=== PATIENT | male | born 1995 | race African-American/Black ===

== ENCOUNTER 2017-11-02 17:07 | Emergency (ER) | payer MEDICAID, SELFPAY ==
[2017-11-02 17:07] VITALS: BP 118/65; PULSE 76; RESP 16; TEMP 36.8; O2SAT 99; BMI 21.7
--- NOTE | 2017-11-02 17:09 | RAD_ITS ---
STUDY: X-RAY - RIGHT KNEE REASON FOR EXAM: Male, 21 years old. Pain after lifting injury. TECHNIQUE: 3 view(s) of the knee. COMPARISON: None. FINDINGS: Normal visualized distal femur. Normal visualized proximal tibia and fibula. Normal proximal tibiofibular articulation. There is no demonstrated fracture. Normal medial femorotibial compartment. Normal lateral femorotibial compartment. Normal patellofemoral articulation. The soft tissue structures are unremarkable. RAD/Knee 3 Views IMPRESSION: Normal x-ray examination of the knee. Electronically Signed: Trini Isaacs MD at 17:25 EDT , Service support ,
--- NOTE | 2017-11-02 17:48 | ED.VISSUMM ---
- ER Visit Summary Date of Service: 11/02/17 Chief Complaint: Right knee pain History of Present Illness: The patient is a 21 M is complaining of right knee pain for the past 1 week. It is intermittent. Patient denies any known specific injury. He denies paresthesias or weakness of his leg. He points to the area just beneath the patella describing the area of pain. He has not noticed significant swelling. Physical Examination: Vital signs are unremarkable. Patient sitting in the santizo chair no acute distress. Heart is regular rate and rhythm. Lung sounds are clear. Lower extremity examination significant for right lower extremity examination with reproducible tenderness along the insertion of the infrapatellar tendon to the patella. There is no joint line tenderness. He has normal range of motion. No effusion is noted. Strong distal pulses are appreciated. Test Results: Right knee x-rays were obtained per nursing protocol. They are unremarkable per radiology read. Emergency Department Course and Treatment: The patient has tendinitis. He will be given an Reggie wrap and started on anti-inflammatories. He is referred to orthopedics if not improving. Treatment Plan: [] Disposition: Discharge Impression: Tendinitis right knee This note was generated with [employer] dictation software. It may contain incorrect words, spelling, and punctuation that were not noted in review of the chart prior to signing ED Disposition - Plan for ED Patient: Disposition: Home or Assisted Living Chief Complaint: Lower Extremity Injury Instructions: ED Sprain Knee Prescriptions: Naproxen [Naprosyn] 500 mg PO BID PRN #20 tablet Referrals: Dayron Benítez MD [Primary Care Provider] - Willis Mcmillan MD [STAFF PHYSICIAN] - As Needed
[2017-11-02 18:27] VITALS: PULSE 56; RESP 14
== END 2017-11-02 18:34 | disposition home or self-care (01) ==
LOC: ED 18:08
PROVIDERS: Emergency Provider Emergency Medicine; Family Provider Pediatrics; PCP Pediatrics
DX: M76.51 Patellar tendinitis, right knee (principal)
CPT/HCPCS: 73562; 99284

== ENCOUNTER 2018-06-18 18:04 | Emergency (ER) | payer MEDICAID, SELFPAY ==
[2018-06-18 18:05] VITALS: BP 117/76; PULSE 83; RESP 16; TEMP 36.4; O2SAT 97; BMI 19.8
[2018-06-18] MEDS: 0.9% Normal Saline 1,000 ML 1000 ML IV (18:24)
[2018-06-18 18:25] VITALS: BP 116/74; BP 117/68; BP 98/69; PULSE 69; PULSE 78; PULSE 97
[2018-06-18 18:37] LABS: Absolute Lymphocyte Count 1.93 X10^3/ul (0.83-4.51); Absolute Neutrophil Count 3.6 X10^3/uL (2.0-7.7); Basophil# 0.01 X10^3/uL; Basophil% 0.2 % (0-1); Eosinophil# 0.09 X10^3/uL; Eosinophils% 1.5 % (0-5); Hematocrit 40.8 % (40-54); Hemoglobin 14.4 g/dl (13.0-16.5); Lymphocyte # 1.93 X10^3/ul (4.0); Lymphocyte % 31.4 % (19-41); Mean Corp Hgb Conc 35.3 g/gl (32-36); Mean Corpuscular Hgb 30.7 pg (27.0-32.0); Mean Platelet Vol. 9.3 fl (6.2-12.0); Monocyte% 8.1 % (0-10); Neutrophil % 58.6 % (47-70); Platelet Count 177 K/mm3 (150-450); RBC Distribution Width CV 12.1 % (11.6-14.6); RBC Distribution Width SD 38.9 fl (35.1-43.9); Red Blood Count 4.69 M/mm3 (4.6-6.2); White Blood Count 6.1 K/mm3 (4.4-11.0)
[2018-06-18 18:38] LABS: POSITIVE COUNT NO; POSITIVE DIFFERENTIAL NO; POSITIVE MORPHOLOGY NO
[2018-06-18 18:56] LABS: Anion Gap 6 (5-15); BUN 11 mg/dL (7-18); BUN/Creat Ratio 12.8 RATIO (10-20); Calcium,Total 8.4 mg/dL (8.5-10.1); Chloride 103 mmol/L (98-107); Creatinine, Serum 0.86 mg/dL (0.70-1.30); EST Glomerular Filtration Rate 120 mL/min (>60); Est Glom Filt Rate - Afr Amer 145 mL/min (>60); Estimated Creatinine Clearance 131.86 ml/min; Glucose 92 mg/dL (74-106); Potassium 3.7 mmol/L (3.5-5.1); Sodium Level 139 mmol/L (136-145)
--- NOTE | 2018-06-18 19:24 | ED.VISSUMM ---
- ER Visit Summary Date of Service: 06/18/18 Chief Complaint: Syncope History of Present Illness: The patient is a 22 M who stood from bed and felt lightheaded. He had a brief syncopal episode as he arrived in the hallway. He denies palpitations. He had similar episodes of the past couple of months. All of occurred shortly after standing. He denies syncope while playing basketball or with any other exertion. He does not have chest pain. He does admit that he has not been eating and drinking well recently. He denies that his urine is concentrated. Physical Examination: Vital signs unremarkable. Patient has lying in bed no acute distress. Head and neck examination is normal. Heart is regular rate and rhythm. Lungs sounds clear. Abdomen is soft nontender. Neuro exam is well. Test Results: Patient is observed on chronic care nurse with no sign of arrhythmia. CBC and chemistry studies normal. Emergency Department Course and Treatment: Patient is given a liter IV fluids. Orthostatic vital signs are borderline positive prior to initiation of any treatment. Test results are discussed with patient and family at bedside. He is instructed to increase fluids over the next several days. Treatment Plan: [] Disposition: Discharge Impression: Orthostatic hypotension with syncope This note was generated with [employer] dictation software. It may contain incorrect words, spelling, and punctuation that were not noted in review of the chart prior to signing ED Disposition - Plan for ED Patient: Chief Complaint: Syncope Referrals: Care Physician,No Primary [Primary Care Provider] -
--- NOTE | 2018-06-18 19:26 | ED.DEP ---
ED Disposition - Plan for ED Patient: Disposition: Home or Assisted Living Chief Complaint: Syncope Instructions: ED Hypotension Orthostatic Referrals: Rogelio Booth MD [STAFF PHYSICIAN] - As Needed
[2018-06-18 19:33] VITALS: BP 114/62; PULSE 71; RESP 16; O2SAT 99
== END 2018-06-18 19:34 | disposition home or self-care (01) ==
PROVIDERS: Emergency Provider Emergency Medicine
DX: I95.1 Orthostatic hypotension (principal)
CPT/HCPCS: 80048; 85025; 96360; 99285; J7030; A4216

== ENCOUNTER 2019-01-15 21:38 | Emergency (ER) | payer MEDICAID, SELFPAY ==
[2019-01-15 21:39] VITALS: BP 119/68; PULSE 91; RESP 15; TEMP 37; O2SAT 99; BMI 20.7
--- NOTE | 2019-01-15 21:45 | RAD_ITS ---
STUDY: X-RAY - RIGHT ANKLE REASON FOR EXAM: Male, 23 years old. Rolled ankle. TECHNIQUE: 3 view(s) of the ankle. COMPARISON: None. FINDINGS: Normal visualized distal tibia and fibula. Normal medial and lateral malleoli. Normal tibiotalar articulation and ankle mortise. Normal visualized talus and calcaneus. The visualized subtalar, talonavicular, calcaneocuboid and tarsal articulations are normal. Lateral soft tissue swelling is present. RAD/Ankle min 3 Views IMPRESSION: No evidence of acute fracture or dislocation. Electronically Signed: Vitor Unger DO at 22:09 EDT , Service support ,
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
== END 2019-01-15 23:13 | disposition home or self-care (01) ==
LOC: ED 22:59
PROVIDERS: Emergency Provider Emergency Medicine
DX: S93.401A Sprain of unspecified ligament of right ankle, initial encounter (principal); X50.1XXA Overexertion from prolonged static or awkward postures, initial encounter; Y93.39 Activity, other involving climbing, rappelling and jumping off; Y92.9 Unspecified place or not applicable
CPT/HCPCS: 73610; 99284

== ENCOUNTER → 2020-01-04 12:03 | Outpatient (CLI) | payer MEDICAID, SELFPAY | PROVIDERS: Referring Provider Otolaryngology; Visit Provider Otolaryngology | DX: Z11.59 Encounter for screening for other viral diseases (principal) | CPT/HCPCS: 87635; G2023; U0003 ==

== ENCOUNTER → 2020-01-08 14:54 | Outpatient (CLI) | payer MEDICAID, SELFPAY ==
--- NOTE | 2020-01-08 13:46 | MASS_PTH ---
PATIENT: RINKU LIVINGSTON LOC: [facility] U#:[id number] AGE/SX: 29/M ROOM: RE01/08/[address]: Dr. Alvin Rhodes MD : 1995 BED: DIS: SPEC #: [id number] RECD: 01/08/20 14:54 STATUS: SARAH PABLO #: [id number] PIERRE: 01/08/20 13:[address]: Alvin Rhodes DEPT: SURGICAL PATHOLOGY RECD BY: Laci Clancy ENTERED: 01/09/20 09:12 SP TYPE: Mass OTHR DR: No Primary Care Phys [facility] Tissues: Preauricular region Procedures: Surgery Specimen Level IV HEADER OPERATION: Excision left preauricular mass PRE-OP DIAGNOSIS: Carbuncle of face TISSUE SUBMITTED: Left preauricular mass MICROSCOPIC DIAGNOSIS Left preauricular mass, excision: Pieces of skin with underlying tissue with chronic inflammation. Negative for malignancy. SJ:arden 01/10/20 MICROSCOPIC DESCRIPTION Slides are reviewed. GROSS DESCRIPTION Received is one container labeled with the patient's name and not further designated. The specimen consists of two pieces of rosen-pink soft tissue and skin that in aggregate measure 0.6 x 0.5 x 0.2 cm. The entire specimen is submitted in one cassette. / MARIN:arden 01/09/20 TC:3 CPT: 41710
== END ==
PROVIDERS: Referring Provider Otolaryngology; Visit Provider Otolaryngology
DX: L02.03 Carbuncle of face (principal)
CPT/HCPCS: 88305

== ENCOUNTER 2022-11-04 08:30 | Emergency (ER) | payer MEDICAID, SELFPAY ==
[2022-11-04 08:31] VITALS: BP 123/77; PULSE 63; RESP 14; TEMP 36.5; O2SAT 100; BMI 20.5
--- NOTE | 2022-11-04 08:39 | RAD_ITS ---
STUDY: X-RAY - LEFT ELBOW REASON FOR EXAM: Male, 26 years old. Pain after trauma TECHNIQUE: 4 view(s) of the elbow. COMPARISON: None. FINDINGS: Normal visualized humerus, radius and ulna. Normal radiocapitellar and ulnotrochlear articulations. The soft tissue structures are unremarkable. RAD/Elbow min 3 Views IMPRESSION: Normal x-ray examination of the elbow. Electronically Signed: Enoch Alfred MD at 9:05 EDT ,
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
== END 2022-11-04 09:12 | disposition home or self-care (01) ==
PROVIDERS: Emergency Provider Emergency Medicine; Visit Provider Emergency Medicine
DX: S59.902A Unspecified injury of left elbow, initial encounter (principal); Y93.75 Activity, martial arts
CPT/HCPCS: 73080; 99282